=== PATIENT | female | born 1985 | race African-American/Black ===

== ENCOUNTER 2020-06-11 10:14 | Outpatient (REF) | payer OTHER, SELFPAY ==
[2020-06-12 11:58] LABS: C. trachomatis RNA TMA NOT DETECTED (NOT DETECTED); N. gonorrhoeae RNA TMA NOT DETECTED (NOT DETECTED)
[2020-06-13 20:21] LABS: HPV mRNA E6/E7 rflx Not Detected (Not Detected)
== END 2020-06-11 10:15 | disposition home or self-care (01) ==
LOC: HO.LAB 10:14
PROVIDERS: PCP Internal Medicine; Visit Provider Advanced Practice Midwife
DX: Z01.419 Encounter for gynecological examination (general) (routine) without abnormal findings (principal); Z11.51 Encounter for screening for human papillomavirus (HPV); N88.8 Other specified noninflammatory disorders of cervix uteri; Z20.2 Contact with and (suspected) exposure to infections with a predominantly sexual mode of transmission
CPT/HCPCS: 36415; 87491; 87591; 87624; 88142

== ENCOUNTER 2020-07-14 12:30 | Outpatient (REF) | payer SELFPAY ==
[2020-07-14 14:53] LABS: Syphilis Screen Nonreactive (Nonreactive)
[2020-07-15 04:31] LABS: HBc Num1 0.18 S/CO (0.00-0.79); HIV AB/AG Nonreactive (Nonreactive); HIV Num 1 0.04 S/CO (0.00-0.99); Hepatitis B Core Antibody Nonreactive (Nonreactive)
[2020-07-15 04:40] LABS: ~HepC Num1 0.12 S/CO (0.00-0.79); ~Hepatitis C Antibody Nonreactive (Nonreactive)
[2020-07-17 18:52] LABS: TS Negative Control Passed; TS Panel A 3; TS Panel B 4; TS Positive Control Passed; TSpotTB Negative (SeeBelow)
== END 2020-07-14 12:31 | disposition home or self-care (01) ==
LOC: HO.HMGCLDS 12:30
PROVIDERS: Advanced Practice Midwife; PCP Internal Medicine; Visit Provider Nurse Practitioner Family
DX: Z02.0 Encounter for examination for admission to educational institution (principal); Z20.2 Contact with and (suspected) exposure to infections with a predominantly sexual mode of transmission
CPT/HCPCS: 36415; 86481; 86704; 86780; 86803; 87389

== ENCOUNTER 2020-08-07 10:02 | Outpatient (REF) | payer OTHER, SELFPAY ==
--- NOTE | ~2020-08-07 | US_ITS ---
EXAMINATION: ULTRASOUND PELVIS COMPLETE CLINICAL INFORMATION: Cervical mass. COMPARISON: None TECHNIQUE: Transabdominal and transvaginal pelvic ultrasound was performed. FINDINGS: The uterus is anteverted and anteflexed measuring 7.3 cm in length, 4.8 cm in AP and 6.5 cm in transverse dimension. The uterus is homogeneous in echotexture. The endometrial thickness measures 1.0 cm. There are several anechoic cysts with echogenic debris in the cervix. Right ovary measures 2.57 x 2.07 x 2.35 cm and volume 6.53 mL. It appears unremarkable. Left ovary measures 2.69 x 1.68 x 1.92 cm and volume 4.54 mL. It appears unremarkable. There is a small amount of free fluid in the cul-de-sac. US/US pelvic complete IMPRESSION: Unremarkable uterus. Multiple complex nabothian cysts in the cervix.
--- NOTE | ~2020-08-07 | US_ITS ---
EXAMINATION: ULTRASOUND PELVIS COMPLETE CLINICAL INFORMATION: Cervical mass. COMPARISON: None TECHNIQUE: Transabdominal and transvaginal pelvic ultrasound was performed. FINDINGS: The uterus is anteverted and anteflexed measuring 7.3 cm in length, 4.8 cm in AP and 6.5 cm in transverse dimension. The uterus is homogeneous in echotexture. The endometrial thickness measures 1.0 cm. There are several anechoic cysts with echogenic debris in the cervix. Right ovary measures 2.57 x 2.07 x 2.35 cm and volume 6.53 mL. It appears unremarkable. Left ovary measures 2.69 x 1.68 x 1.92 cm and volume 4.54 mL. It appears unremarkable. There is a small amount of free fluid in the cul-de-sac. US/US transvaginal IMPRESSION: Unremarkable uterus. Multiple complex nabothian cysts in the cervix.
== END 2020-08-07 10:03 | disposition home or self-care (01) ==
LOC: HO.HMGCX 10:02
PROVIDERS: PCP Internal Medicine; Visit Provider Advanced Practice Midwife
DX: N88.8 Other specified noninflammatory disorders of cervix uteri (principal)
CPT/HCPCS: 76830; 76856

== ENCOUNTER → 2020-08-14 11:53 | Outpatient (BNVA) | payer OTHER, SELFPAY | PROVIDERS: PCP Internal Medicine; Visit Provider Advanced Practice Midwife ==

== ENCOUNTER 2021-07-06 08:07 | Outpatient (REF) | payer OTHER, SELFPAY ==
[2021-07-06 15:14] LABS: CT PCR NOT DETECTED (Not Detect.); NG PCR NOT DETECTED (Not Detect.)
[2021-07-06 16:21] LABS: BV Int Neg Control Negative (Negative); BV Int Pos Control Positive (Positive)
== END 2021-07-06 08:08 | disposition home or self-care (01) ==
LOC: HO.LAB 08:07
PROVIDERS: PCP Internal Medicine; Visit Provider Advanced Practice Midwife
DX: Z01.419 Encounter for gynecological examination (general) (routine) without abnormal findings (principal); N94.6 Dysmenorrhea, unspecified; N88.9 Noninflammatory disorder of cervix uteri, unspecified; Z20.2 Contact with and (suspected) exposure to infections with a predominantly sexual mode of transmission
CPT/HCPCS: 87480; 87491; 87510; 87591; 87660

== ENCOUNTER 2022-08-17 09:29 | Outpatient (REF) | payer OTHER, SELFPAY ==
[2022-08-17 11:36] LABS: MANUAL DIFF FLAG NO
[2022-08-17 11:37] LABS: Appearance Urine Clear; Color Urine Yellow; Glucose Urine UA Negative (Negative); Leukocyte Esterase Urine Small (1+) (Negative); Nitrite Urine Negative (Negative); UMIC TRIGGER UACC YES; Urine Blood Negative (Negative); Urine Ketones Negative (Negative); Urine Protein Negative (Neg-Trace)
[2022-08-17 11:43] LABS: Basophils Percent Auto 0.7 % (0-2); Eosinophils Absolute Auto 0.1 X10*3/uL (0.0-0.4); Eosinophils Percent Auto 1.6 % (0-4); Hematocrit 40.1 % (37.0-47.0); Hemoglobin 12.7 g/dl (12.0-16.0); Lymphocytes Absolute Auto 1.5 X10*3/uL (1.2-4.9); Mean Corpuscular HGB Conc 31.7 g/dl (31.0-35.0); Mean Corpuscular Hemoglobin 28.1 pg (27.0-33.0); Mean Corpuscular Volume 88.7 fL (80.0-98.0); Mean Platelet Volume 11.1 fL (9.4-12.3); Monocytes Absolute Auto 0.2 X10*3/uL (0.1-1.2); Monocytes Percent Auto 5.9 % (2-11); Neutrophils Absolute Auto 1.3 x10*3/uL (2.0-8.3); Neutrophils Percent Auto 41.8 % (45-73); Platelet Count 271 X10*3/uL (160-400); Red Blood Count 4.52 X10*6/uL (4.20-5.50); Red Cell Distribution Width 13.9 % (11.0-16.0)
[2022-08-17 12:00] LABS: Bacteria Urine None Seen (None Seen); Hyaline Casts Urine 0-2 /LPF (0-2); RBC Urine 0-2 /HPF (0-2); Squamous Epithelial Cell Urine 0-2 /HPF (0-2); UACC Culture Trigger YES; WBC Urine 0-5 /HPF (0-5)
[2022-08-17 12:12] LABS: Alanine Aminotransferase 14 U/L (0-31); Alkaline Phosphatase 63 U/L (39-117); Anion Gap 10 (12-20); Aspartate Amino Transferase 20 U/L (5-31); Bilirubin Total 0.4 mg/dL (0.0-1.0); Blood Urea Nitrogen 9 mg/dL (9-16); Calcium 8.8 mg/dL (8.4-10.2); Carbon Dioxide 29 mmol/L (22-29); Chloride 103 mmol/L (96-108); Cholesterol 194 mg/dL; Estimated Glomerular Filt Rate > 60; Glucose Fasting 92 mg/dL (60-99); HDL Cholesterol 63 mg/dL; LDL Cholesterol Calculated 117 mg/dl; Potassium 4.4 mmol/L (3.3-5.1); Sodium 138 mmol/L (135-145); Total Protein 7.4 g/dL (6.5-8.0); Triglycerides 72 mg/dL
[2022-08-17 12:14] LABS: TSH reflex Free T4 1.39 uIU/mL (0.32-4.0)
[2022-08-18 04:24] LABS: Syphilis Screen Nonreactive (Nonreactive)
[2022-08-18 04:32] LABS: HBS Num1 > 1000.00 mIU/mL (0-7.99); HIV AB/AG Nonreactive (Nonreactive); HIV Num 1 0.07 S/CO (0.00-0.99); ~Hepatitis B Surface Antibody REACTIVE (Nonreactive)
[2022-08-19 10:28] LABS: Herpes Simplex Type 2 IgG <0.90 index
== END 2022-08-17 09:30 | disposition home or self-care (01) ==
LOC: HO.HMGCLDS 09:29
PROVIDERS: PCP Internal Medicine; Visit Provider Internal Medicine
DX: Z00.01 Encounter for general adult medical examination with abnormal findings (principal); Z11.3 Encounter for screening for infections with a predominantly sexual mode of transmission; Z11.4 Encounter for screening for human immunodeficiency virus [HIV]; E07.89 Other specified disorders of thyroid
CPT/HCPCS: 36415; 80053; 80061; 81001; 84443; 85025; 86695; 86696; 86706; 86780; 87086; 87389

== ENCOUNTER 2022-08-26 15:33 | Outpatient (REF) | payer OTHER, SELFPAY ==
[2022-08-27 14:15] LABS: CT PCR NOT DETECTED (Not Detect.); NG PCR NOT DETECTED (Not Detect.)
[2022-09-02 04:44] LABS: HPV mRNA E6/E7 rflx Not Detected (Not Detected)
== END 2022-08-26 15:34 | disposition home or self-care (01) ==
LOC: HO.LNP 15:33
PROVIDERS: PCP Internal Medicine; Visit Provider Advanced Practice Midwife
DX: Z01.419 Encounter for gynecological examination (general) (routine) without abnormal findings (principal); Z11.51 Encounter for screening for human papillomavirus (HPV); N88.8 Other specified noninflammatory disorders of cervix uteri; N88.9 Noninflammatory disorder of cervix uteri, unspecified; N92.0 Excessive and frequent menstruation with regular cycle; Z20.2 Contact with and (suspected) exposure to infections with a predominantly sexual mode of transmission
CPT/HCPCS: 0353U; 87624; 88142

== ENCOUNTER 2023-10-05 08:32 | Outpatient (AMB) | payer BC, OTHER, SELFPAY ==
[2023-10-05 08:33] VITALS: BP 112/72; PULSE 62; O2SAT 99; BMI 25.9
--- NOTE | 2023-10-05 08:33 | A.OFFPC_ITS ---
Vital Signs 10/05/23 08:33 Height 5 ft 7 in Weight 165 lb 4 oz BMI 25.9 BP 112/72 Blood Pressure Location Lt brachial Position Sitting Pulse 62 Pulse Source Pulse Oximeter Pulse Oximetry (%) 99 Oxygen Delivery Method Room Air Intake Visit Reasons: Annual PE Rescheduled due to inactive insurance Allergies No Known Allergies Allergy (Verified 10/05/23 08:37) Medication List - Last Reconciled 10/05/23 by Carlee Shaver MD No Known Home Meds Tobacco use date assessed: 10/05/23 Dental Screening Dental Screen Date: 10/05/23 Did you have a dental visit in the last 12 months?: Yes Did you have a dental problem in the last 6 months where you did not have access to dental care?: No Was dental information given to patient?: Patient has dentist HPI Annual PE Rescheduled due to inactive insurance HPI Details Patient is a 37-year-old female came in today for annual physical examination Last year she had labs her white count was 3.0 We will be repeating that again Patient have OBGYN, breast exam and Pap smear through OBGYN Offer no new complaints today Her thyroid gland continued to be enlarged, last year I ordered TSH which came back normal I have added that again to her labs. I have also ordered ultrasound of thyroid She tells me that her mother also has slightly enlarged thyroid and she underwent all kind of testing and it came back normal. [facility] Medical History Nabothian cyst Surgical History Hx of section Social History Housing: House Alcohol intake: current Alcohol intake frequency: holidays/special occasions only Patient Tobacco Use Status: Never used Tobacco e-Cigarette/Vaping Use: Never Used service: No Current occupational status: student Sexual orientation: Straight/Heterosexual Gender identity: Female Cognitive needs: No Hearing needs: No Vision needs: No Female Reproductive History Menstrual Age of Menarche: 16 Questionnaire PHQ-9 Over the last 2 weeks, how often have you been bothered by any of the following problems? 1. Little interest or pleasure in doing things: not at all 2. Feeling down, depressed, or hopeless: not at all 3. Trouble falling or staying asleep, or sleeping too much: not at all 4. Feeling tired or having little energy: nearly every day 5. Poor appetite or overeating: not at all 6. Feeling bad about yourself - or that you are a failure or have let yourself or your family down: not at all 7. Trouble concentrating on things, such as reading the newspaper or watching television: not at all 8. Moving or speaking so slowly that other people could have noticed. Or the opposite - being so fidgety or restless that you have been moving around a lot more than usual: not at all 9. Thoughts that you would be better off or of hurting yourself in some way: not at all Total score: 3 Depression Screening Interpretation: Negative Depression Screening Done: Yes 28629 - PHQ-9 Billing: Yes Source: Developed by Drs. Addison Bethea, Sia Samuel, Matt Serrano and colleagues, with an educational damián from [employer]. Thrive Questionnaire Date Thrive assessed: 10/05/23 I am a: Patient What is your living situation today?: I have a steady place to live Within the past 12 months, did the food you bought not last and you didn't have the money to get more?: Never true Within the past 12 months, did you worry whether your food would run out before you got money to buy more?: Never true Do you have trouble paying for medicines?: No Do you have trouble getting transportation to medical appointments?: No Do you have trouble paying your heating and electricity bill?: No Do you have trouble taking care of your child, family member or friend?: No Do you have trouble with day-to-day activities such as bathing, preparing meals, shopping, managing finances, etc.?: No Are you currently unemployed and looking for a job?: No Are you interested in more education?: No Please select the resources that you would like help with: None Currently or been in a relationship where the following occur: no concerns reported THRIVE Score: 0 AUDIT C Alcohol Use Questionnaire (AUDIT-C) 1. How often do you have a drink containing alcohol?: Never 3. How often do you have six or more drinks on one occasion?: Never Total Score: 0 Score Reviewed/Action Taken: Yes LUIS ANGEL-7 AMB Questionnaire LUIS ANGEL-7 Date LUIS ANGEL - 7 assessed: 10/05/23 Feeling nervous, anxious, or on edge: 0 = Not at all Not being able to stop or control worryin = Not at all Worrying too much about different things: 0 = Not at all Trouble relaxin = Not at all Being so restless that it is hard to sit still: 0 = Not at all Becoming easily annoyed or irritable: 0 = Not at all Feeling afraid as if something awful might happen: 0 = Not at all Total LUIS ANGEL-7 score (0-4 normal; 5-9 mild; 10-14 moderate; 15-21 severe): 0 Source: Developed by Drs. Addison Bethea, Sia Samuel, Matt Serrano and colleagues, with an educational damián from [employer]. LUIS ANGEL-7 Assessment Billing LUIS ANGEL-7 Assessment Tool: LUIS ANGEL-7 Assessment 66699 Review of Systems Const Denies chills, Denies fever(s) and Denies headache(s) Eyes Denies blurry vision ENT Denies headache(s), Denies nasal discharge, Denies nasal obstruction, Denies odynophagia and Denies sinus pain Card Denies chest pain at rest and Denies chest pain with activity Resp Denies cough and Denies hemoptysis GI Denies diarrhea, Denies odynophagia, Denies vomiting and Denies hematemesis Reports as per HPI Musc Denies abnormal gait Skin/Breast Reports as per HPI Neuro Denies Neuro-related abnormal movements, Denies Abnormal speech present, Denies abnormal gait, Denies headache(s) and Denies Sensory deficit (Neuro) Psych Denies mood swings and Denies paranoia Endo Reports as per HPI Prakash/Lymph Reports as per HPI Aller/Immun Reports as per HPI Physical exam (Primary Care) Vital Signs: Last Vital Signs Pulse 62 10/05/23 08:33 BP 112/72 10/05/23 08:33 Pulse Ox 99 10/05/23 08:33 Oxygen Delivery Method Room Air 10/05/23 08:33 BMI result Body Mass Index 25.9 Tobacco/Smoking Status: Tobacco use Status Tobacco use date assessed 10/05/23 10/05/23 08:38 Patient Tobacco Use Status Never used Tobacco 10/05/23 08:38 e-Cigarette/Vaping Use Never Used 10/05/23 08:38 PHQ-9: PHQ-9 Score PHQ-9: Total score 3 10/05/23 08:55 Depression Screening Interpretation: Negative Thrive Assessment: Date of Thrive Assessment Date Thrive assessed 10/05/23 10/05/23 08:55 Currently or been in a relationship where the following occur: no concerns r eported Const General: cooperative, comfortable and no acute distress Orientation/consciousness: patient oriented x3 HENMT Head: Yes normocephalic and Yes atraumatic Eyes General: appearance normal, both eyes and all related structures Pupils: Equal, round and reactive pupils present EOM: EOMs intact bilaterally Neck Other: Thyroid palpable homogeneously Neck: Yes supple and No lymphadenopathy Lymphatic: no lymphadenopathy noted Resp Effort & Inspection: normal respiratory effort and able to speak in complete sentences Auscultation: clear to auscultation bilaterally Cardio Heart sounds: S1 normal heart sound present and S2 normal heart sound present GI Palpation (GI): Soft to palpation and nontender Auscultation: normal bowel sounds General: Yes no CVA tenderness Back/Spine/Pelvis Back: no CVA tenderness Skin General skin exam: elasticity normal and turgor normal Neuro General: patient oriented x3 and gait normal Cranial nerves: Yes Equal, round and reactive pupils present Speech: No Abnormal speech present Sensory Exam: No Sensory deficit (Neuro) Coordination: tandem gait normal and Romberg test negative Extrem General: Yes normal exam except as noted and No edema Assessment and Plan Assessment & Plan (1) Encounter for general adult medical examination with abnormal findings: Code(s): Z00.01 - Encounter for general adult medical examination with abnormal findings (2) Neutropenia: Code(s): D70.9 - Neutropenia, unspecified Qualifiers: Neutropenia type: unspecified Qualified Code(s): D70.9 - Neutropenia, unspecified (3) Palpable thyroid: Code(s): E07.89 - Other specified disorders of thyroid Plan Patient is a 37-year-old female came in today for annual physical examination Last year she had labs her white count was 3.0 We will be repeating that again Patient have OBGYN, breast exam and Pap smear through OBGYN Offer no new complaints today Her thyroid gland continued to be enlarged, last year I ordered TSH which came back normal I have added that again to her labs. I have also ordered ultrasound of thyroid She tells me that her mother also has slightly enlarged thyroid and she underwent all kind of testing and it came back normal. Orders: Orders Complete Blood Count Auto Diff Today D70.9 - Neutropenia, unspecified, Z00.01 - Encounter for general adult medical examination with abnormal findings TSH reflex Free T4 Today E07.89 - Other specified disorders of thyroid US thyroid Today E07.89 - Other specified disorders of thyroid Comprehensive [place]. Panel Fast Today D70.9 - Neutropenia, unspecified, Z00.01 - Encounter for general adult medical examination with abnormal findings Coding Level of Care Code Est Pt Level 3 (20080) Est Pt Prev Care 18-39y(93507) Diagnoses Encounter for general adult medical examination with abnormal findings Z00.01 Neutropenia, unspecified type D70.9 Neutropenia type: unspecified Palpable thyroid E07.89 Additional Codes LUIS ANGEL-7 Assessment Billing - LUIS ANGEL-7 Assessment Tool: LUIS ANGEL-7 Assessment 29497 ([id number])
== END 2023-10-05 08:54 | disposition home or self-care (01) ==
PROVIDERS: PCP Internal Medicine; Visit Provider Internal Medicine
DX: Z00.00 Encounter for general adult medical examination without abnormal findings (principal); D70.9 Neutropenia, unspecified; E07.89 Other specified disorders of thyroid
CPT/HCPCS: 99395

== ENCOUNTER 2023-10-05 08:58 | Outpatient (REF) | payer BC, SELFPAY ==
[2023-10-05 10:47] LABS: MANUAL DIFF FLAG NO
[2023-10-05 10:58] LABS: Basophils Percent Auto 0.5 % (0-2); Eosinophils Absolute Auto 0.1 X10*3/uL (0.0-0.4); Eosinophils Percent Auto 1.3 % (0-4); Hemoglobin 12.6 g/dl (12.0-16.0); Imm Gran Abs Auto 0.01 X10*3/uL (0.00-0.03); Imm Gran Pct Auto 0.3 % (0.0-0.4); Lymphocytes Absolute Auto 1.9 X10*3/uL (1.2-4.9); Lymphocytes Percent Auto 50.5 % (20-40); Mean Corpuscular HGB Conc 32.3 g/dl (31.0-35.0); Mean Corpuscular Volume 89.9 fL (80.0-98.0); Mean Platelet Volume 10.9 fL (9.4-12.3); Monocytes Absolute Auto 0.3 X10*3/uL (0.1-1.2); Monocytes Percent Auto 8.1 % (2-11); Neutrophils Absolute Auto 1.5 x10*3/uL (2.0-8.3); Neutrophils Percent Auto 39.3 % (45-73); Platelet Count 246 X10*3/uL (160-400); Red Blood Count 4.34 X10*6/uL (4.20-5.50); Red Cell Distribution Width 14.1 % (11.0-16.0); White Blood Count 3.8 X10*3/uL (4.8-10.8)
[2023-10-05 11:33] LABS: Alanine Aminotransferase 13 U/L (0-31); Albumin Level 4.1 g/dL (3.5-5.0); Alkaline Phosphatase 52 U/L (39-117); Anion Gap 10 (12-20); Aspartate Amino Transferase 22 U/L (5-31); Bilirubin Total 0.3 mg/dL (0.0-1.0); Blood Urea Nitrogen 13 mg/dL (9-16); Calcium 8.6 mg/dL (8.4-10.2); Carbon Dioxide 28 mmol/L (22-29); Chloride 105 mmol/L (96-108); Estimated Glomerular Filt Rate > 60; Glucose Fasting 94 mg/dL (60-99); Potassium 3.9 mmol/L (3.3-5.1); Sodium 139 mmol/L (135-145); Total Protein 7.8 g/dL (6.5-8.0)
[2023-10-05 11:35] LABS: TSH reflex Free T4 2.43 uIU/mL (0.32-4.0)
== END 2023-10-05 08:59 | disposition home or self-care (01) ==
LOC: HO.HMGCLDS 08:58
PROVIDERS: PCP Internal Medicine; Visit Provider Internal Medicine
DX: Z00.01 Encounter for general adult medical examination with abnormal findings (principal); D70.9 Neutropenia, unspecified; E07.89 Other specified disorders of thyroid
CPT/HCPCS: 36415; 80053; 84443; 85025

== ENCOUNTER 2023-10-19 14:27 | Outpatient (REF) | payer BC, SELFPAY ==
--- NOTE | ~2023-10-19 | US_ITS ---
EXAMINATION: US THYROID CLINICAL INFORMATION: Other specified disorders of thyroid. COMPARISON: None available. TECHNIQUE: Linear transducer caldera-scale and color Doppler examination with attention to the region of the thyroid. FINDINGS: SIZE: Measurements of the thyroid lobes and nodules are given in sagittal, anteroposterior and transverse dimensions respectively. Right Thyroid Lobe: 5.0 x 1.2 x 1.4 cm, volume 4.5 mL. Parenchyma: The gland echotexture is mildly heterogeneous. Thyroid vascularity is normal. Left Thyroid Lobe: 4.6 x 1.1 x 1.7 cm, volume 4.6 mL. Parenchyma: The gland echotexture is mildly heterogeneous. Thyroid vascularity is normal. Isthmus: 0.4 cm in maximum AP dimension. Estimated total number of nodules greater than or equal to 1 cm: 0. Concrete Rod Buster nodules are described as follows: 1. Location: Right lower pole. Size: 0.36 x 0.16 x 0.29 cm, volume 0.1 mL. Nodule characteristics: Composition: Cystic(0). ACR TI-RADS total points: 0 ACR TI-RADS category: 1 NODES: No lymphadenopathy is seen in the tissue surrounding the thyroid gland. US/US thyroid IMPRESSION: 0.4 cm right TR1 thyroid nodule. Mild diffuse heterogeneity of the thyroid gland. ACR TI-RADS RECOMMENDATION REFERENCE: Ultrasound-guided fine-needle aspiration, followup ultrasound, no further follow up. * TR1 (0 point) and TR2 (2 points): No FNA or follow up. * TR3 (3 points): FNA if more than or equal to 2.5 cm in maximum dimension, followup ultrasound in 1, 3 and 5 years if 1.5 to 2.4 cm in maximum dimension. * TR4 (4-6 points): FNA if more than or equal to 1.5 cm in maximum dimension, followup ultrasound in 1, 2, 3 and 5 years if 1 to 1.4 cm in maximum dimension. * TR5 (more than or equal to 7 points): FNA if more than or equal to 1 cm in maximum dimension, followup ultrasound every year for 5 years if 0.5 to 0.9 cm in maximum dimension. * TR3, TR4 or TR5 nodules that are below the size threshold for followup receive no follow up.
== END 2023-10-19 14:28 | disposition home or self-care (01) ==
LOC: HO.HMGCX 14:27
PROVIDERS: PCP Internal Medicine; Visit Provider Internal Medicine
DX: E07.89 Other specified disorders of thyroid (principal)
CPT/HCPCS: 76536

== ENCOUNTER 2024-10-25 11:37 | Outpatient (AMB) | payer BC, SELFPAY ==
--- NOTE | 2024-10-25 11:47 | A.OFFVIS_ITS ---
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 Doing well with gynecologist concerns: wants IUD removed for future . [place]ing out of the [place] this month would prefer to have the IUD removed before traveling. Regular monthly menses. She denies vaginal itching or irritation. STI screening offered; she declines. She tries to eat healthy and stays active with exercise. Denies family history of breast, ovarian or colon cancer. Last pap smear 2022, negative. [facility] Medical History Nabothian cyst Surgical History Hx of section Social History Housing: House Alcohol intake: current Alcohol intake frequency: holidays/special occasions only Patient Tobacco Use Status: Never used Tobacco e-Cigarette/Vaping Use: Never Used service: No Current occupational status: student Sexual orientation: Straight/Heterosexual Gender identity: Female Cognitive needs: No Hearing needs: No Vision needs: No Female Reproductive History Menstrual Age of Menarche: 16 Date of last menstrual period: 10/21/24 control method: copper IUCD Date of last pap smear: 08/26/22 (neg pap and hpv) Review of Systems Const All systems reviewed & are unremarkable except as noted in HPI and below Reports as per HPI Eyes Reports no additional complaints ENT Reports no additional complaints Card Reports no additional complaints Resp Reports no additional complaints GI Reports as per HPI and Reports no additional complaints Reports as per HPI Musc Reports no additional complaints Skin/Breast Reports as per HPI Neuro Reports no additional complaints Psych Reports no additional complaints Endo Reports no additional complaints Prakash/Lymph Reports no additional complaints Aller/Immun Reports no additional complaints Physical Exam Vital Signs: Last Vital Signs BP 104/60 10/25/24 11:50 BMI result Body Mass Index 25.5 Const General: cooperative, healthy appearing, no acute distress, well developed and alert Orientation/consciousness: patient oriented x3 HEENT Head: Yes normal to inspection Eyes General: appearance normal, both eyes and all related structures Neck Neck: Yes normal visual inspection Thyroid: Thyroid normal Chest Chest palpation & inspection: normal inspection of the chest and other (no puckering, dimpling, peau de orange, retraction, discharge, masses) Breast/axilla inspection: normal inspection of the breasts Breast/axilla palpation: normal palpation of the breasts Resp Effort & Inspection: normal respiratory effort GI Inspection: Yes normal to inspection Palpation (GI): Soft to palpation Rectal Exam - Female: deferred General: Yes bladder normal to palpation External Female Exam: normal external appearance and normal appearance of the urethra Speculum Exam - Vagina: normal appearance of the vagina, normal palpation and normal vaginal discharge Speculum Exam - Cervix: normal appearance of the cervix, normal palpation and Other cervical findings present (IUD strings at the os) Bimanual exam- vagina & uterus: normal bimanual exam, normal palpation, uterine size normal, bladder normal to palpation, normal palpation and non-tender Bimanual Exam- Adnexa, other: no masses Skin General skin exam: no rashes or lesions noted Rashes: no rashes Neuro General: patient oriented x3 Cognition (Neuro): normal cognition Extrem General: Yes normal to inspection Psych Attitude: cooperative Thought process: Normal thought process present Office Procedures IUD Insert/Removal Details Details: The patient presents today for a IUD removal. ?She is planning a future . She was counseled regarding the removal of her IUD. She was consented for the procedure along with anticipatory guidance for the removal and the consents form was signed. She desires to proceed with the IUD removal. IUD Removal Procedure: The patient was placed in the dorsal lithotomy position. A speculum was inserted vaginally and the cervix and strings were visualized at the os. A ring forcep was utilized, and the patient was asked to give a deep cough while the strings were grasped and gently tugged at the same time, removing the IUD device intact. Minimal bleeding was observed. All of the equipment was removed. The patient tolerated the procedure well and left the office in good condition. IUD Removal Information: You may have light bleeding for several days, tapering off to a brown or pink color. Mild cramping after removal is common. If not allergic, you may take an over the counter mild analgesic for the discomfort, such as Tylenol or Advil (use dosing and frequency per the manufacturers recommendations). Call the office if you experience: fever (over 100.4), flu like symptoms, abdominal or pelvic pain, foul smelling discharge or heavy bleeding. If not planning for a future , another form of control is recommended. Use of condoms for prevention of STI's is also recommended, if indicated. This note is constructed using voice recognition software. ?While every effort has been made to ensure accuracy, food tray assembler errors may have been included. ? 24709-INE Removal Additional procedure code (CPT) needed Assessment & Plan Assessment & Plan (1) Encounter for well woman exam with routine gynecological exam: Code(s): Z01.419 - Encounter for gynecological examination (general) (routine) without abnormal findings Category: Medical Plan: Discussed: Current recommendations for pap smears per ASCCP guidelines. Breast awareness and periodic breast exams. Maintain a healthy lifestyle including a well balanced diet and routine exercise. Monitor menses if late for cycle, do a home test if positive report to the office for follow up care. Informed and care completed [place] [facility], [place] at [facility] and a variation of options available. Start vitamins Rx sent in. Patient verbalizes understanding and agrees to the plan of care. She was given opportunity to ask questions and all questions were answered to the best of my ability. RTO in one year for annual gynecologist examination. This note is constructed using voice recognition software. While every effort has been made to ensure accuracy, food tray assembler errors may have been included. (2) Encounter for IUD removal: Code(s): Z30.432 - Encounter for removal of intrauterine contraceptive device Plan See procedure notes. This note is constructed using voice recognition software. While every effort has been made to ensure accuracy, food tray assembler errors may have been included. Coding Level of Care Code Est Pt Prev Care 18-39y(59973) Diagnoses Encounter for well woman exam with routine gynecological exam Z01.419 Encounter for IUD removal Z30.432 CPT Codes Details - CPT: 11632-KGT Removal ([id number]) Comment Add modifier for IUD removal
[2024-10-25 11:50] VITALS: BP 104/60; BMI 25.5
--- OUTSIDE RECORDS SUMMARY | 2024-10-25 13:09 | XMS_ITS | Data Portability ---
Author Organization [facility] GroupCarl[facility] s [address] [place] [address] Assessment No assessment recorded. Plan of Treatment Reminders Order Date Submit Date Provider Last Modified By Organization Details Last Modified Time Details Appointments None record ed. Lab None record ed. Referral None record ed. Procedures None record ed. Surgeries None record ed. Imaging None record ed. Medication Orders None record ed. Patient TargetsNo targets recorded. Patient Instructions Encounter Date Encounter Id Patient Instructions Last Modified By Organization Details Last Modified Time 09/03/2022 [id number] This physical does not replace the annual physical to be performed by your PCP. There may be additional screening tests that they will perform that we do not in the urgent care setting. Failure to follow up as recommended may result in significant adverse health consequences. If your symptoms worsen or you develop new symptoms that concern you, go to the emergency department for further evaluation. [email or web address] Not available 09/03/2022 11:20:49 Reason for Referral None Reported. Procedures Surgical History Date Name Laterality Status Provider Name and Address Organization Details Recorded Time 09/04/19 23 OC-UDS Send Out Template NON DOT completed DESHAUN FLORES PA - [facility] 09/03/2022 10:10:43 09/04/19 23 OC - Venipuncture Template completed DESHAUN FLORES PA - [facility] 09/03/2022 10:11:01 07/15/19 23 OC-DOT PHYSICAL completed Jessy Cross PA - [facility] 07/14/2022 15:37:54 Imaging Results None recorded. Procedure Notes None recorded. Medical Equipment None Reported. Medications Name Sig Start Date Stop Date Status Note LastModified by Organization Details LastModified Time ibuprofen 800 mg tablet TAKE 1 TABLET 3 TIMES A DAY BY ORAL ROUTE. active Not Available Not Available No t Available prochlorperazine maleate 10 mg tablet TAKE 1 TABLET BY MOUTH EVERY 6 TO 8 HOURS NEEDED FOR NAUSEA active Not Available Not Available No t Available Vitamins Plus Low Iron 27 mg iron-1 mg tablet TAKE 1 TABLET BY MOUTH EVERY DAY active Not Available Not Available No t Available Vitals None Recorded Social History None recorded. Functional Status None recorded. Mental Status None recorded. Family History Nothing Reported. Medical History No medical history recorded. Gynecological HistoryNo gynecological history recorded. Obstetrics History GPAL:G 0 P 0 0 0 0 Past Encounters Encounter ID Performer Location Encounter Start Date Encounter Closed Date Diagnosis/Indication Diagnosis SNOMED-CT Code Diagnosis ICD10 Code Diagnosis Note [id number] [address] [place] [address] 08/02/2020 16:39:27 08/02/2020 17:07:45 [id number] [address] [address] [address] [place] [address] 08/02/2020 12:36:15 08/02/2020 14:04:14 [id number] Lucita Mota MD [address] [place] [address] 07/14/2022 14:46:11 07/14/2022 17:12:30 [employer] 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 239352282 Z02.4 Physical examination 588 0005 Z02.4 [id number] [place]ales [place] [address] [place] [address] 09/03/2022 09:41:11 09/03/2022 11:23:52 History and physical examination, occupation 225239340 Z02.1 History an d physical examination, pre-employment [id number] Z02.1 Health Concerns Section Related Observation LastModified by Organization Detai ls LastModified Time None Recorded Concern Status LastModified by Organization Details LastModified Time None Recorded Advance Directives Directive None Recorded Payers Insurance Date Sequence Insurance Name Policy Number Policy Dubose Covered Member ID Dubose Member ID Guarantor Name 07/14/2022 [employer]EN [employer] Mike Diaz 09/02/2022 1 [facility] (O) Andi Diaz [id number] Mike Isaacanja 09/02/2022 OC-ESCREEN Mike Diaz [id number] Mike Isaacanja OBGyn Episode No OBEpisode recorded.
== END 2024-10-25 12:18 | disposition home or self-care (01) ==
LOC: HO.HWS 11:37
PROVIDERS: PCP Internal Medicine; Visit Provider Advanced Practice Midwife
DX: Z01.419 Encounter for gynecological examination (general) (routine) without abnormal findings (principal); Z30.432 Encounter for removal of intrauterine contraceptive device
CPT/HCPCS: 58301; 99395; 99459

== ENCOUNTER → 2024-10-25 11:37 | Outpatient (BNVA) | payer BC, SELFPAY | PROVIDERS: PCP Internal Medicine; Visit Provider Advanced Practice Midwife | DX: Z30.432 Encounter for removal of intrauterine contraceptive device (principal) | CPT/HCPCS: 58301 ==